=== PATIENT | male | born 1970 | race Asian ===

== ENCOUNTER 2018-06-01 09:27 | Emergency (ER) | payer OTHER ==
[~2018-06-01] VITALS: Ht 180.3 cm; Wt 95.7 kg
[~2018-06-01 09:27] MED LIST: AMLODIPINE BESY10 M1 PO; AUG500 PO; GUAIFENESIN AN118 ML PO; LAC PO; LEVOFLOXACIN500 M1 PO; LOSARTAN POTASS50 M1 PO; METFORMIN HCL1000 MG PO; THERAGRAN-M1 TA4 PO; VENTOLIN H0.09 MG/A1 INH
[2018-06-01 09:46] VITALS: Ht 180.3 cm; Wt 95.7 kg
[2018-06-01 12:30] VITALS: BP 125/98
== END 2018-06-01 12:30 | disposition home or self-care (01) ==
LOC: ED 09:27
DX: S22.41XA Multiple fractures of ribs, right side, initial encounter for closed fracture (principal); I10 Essential (primary) hypertension; V00.311A Fall from snowboard, initial encounter; Y93.23 Activity, snow (alpine) (downhill) skiing, snowboarding, sledding, tobogganing and snow tubing; Y92.89 Other specified places as the place of occurrence of the external cause; Y99.8 Other external cause status
CPT/HCPCS: 94150